=== PATIENT | female | born 1975 | race Caucasian/White ===

== ENCOUNTER 2016-11-12 20:12 | Emergency (ER) | payer OTHER ==
[2016-11-12] MEDS ORDERED: IBUPROFEN 600 MG TABLET PO ONE (20:46)
[2016-11-12] MEDS ORDERED: CHLORDIAZEPOXIDE 25 MG CAPSULE PO ONE (20:46)
--- NOTE | 2016-11-12 21:45 | ER NURSING DOCUMENTATION ---
Nurse's Notes [facility] Name:Natasha Kulkarni Age:41 yrs Sex:Female :1975 Arrival Date:11/12/2016 Time:20:12 Bed4 Private MD: Diagnosis:Rib Fracture Presentation: 11/12 20:20 Presenting complaint: Patient states: pt states she fell 2 days ago. has left sided rib bw2 pain. lung sounds present and clear. no obvious trauma. Care prior to arrival: None. Mechanism of Injury: Fall unknown. Trauma event details: Injury occurred in the [facility]. 20:20 Acuity: ZULLY 3 bw2 20:20 Method Of Arrival: Walk In 2 21:44 Transition of care: [place]. bw2 Historical: - Allergies: No known drug Allergies; - Tetanus: unknown unknown. - Ebola Screening: : Patient negative for fever greater than or equal to 101.5 degrees Fahrenheit, and additional compatible Ebola Virus Disease symptoms. Patient denies exposure to infectious person. Patient denies travel to an Ebola-affected area in the 21 days before illness onset. No symptoms or risks identified at this time. . - Social history: Smoking status: Patient uses tobacco products, current every day smoker. - Immunization history: Flu Vaccine None. Screenin:24 Abuse screen: Denies threats or abuse. Nutritional screening: No deficits noted. bw2 Tuberculosis screening: No symptoms or risk factors identified. 20:25 Infectious Disease Risk None. bw2 Primary Survey: 20:23 Airway: patent. Breathing/Chest: Respiratory pattern: regular, Respiratory effort: bw2 spontaneous, Breath sounds: clear, bilaterally. Chest inspection: symmetrical rise and fall of the chest. Circulation: Skin color: pink. Assessment: 20:23 General: Appears in no apparent distress, Behavior is anxious. Pain: Complains of pain bw2 in left rib Pain currently is 10 out of 10 on a pain scale. 20:24 See Triage Assessment done by same RN. bw2 Vital Signs: 20:23 BP 131 / 102; Pulse 76; Temp 97.8; Pulse Ox 97% on R/A; Weight 58.97 kg; Height 5 ft. 7 bw2 in. (170.18 cm); Pain 10/10; 21:34 BP 160 / 98; Pulse 78; Resp 18; Pulse Ox 97% ; bw2 20:23 Body Mass Index 20.36 (58.97 kg, 170.18 cm) bw2 Trauma Score (Adult): 20:23 Eye Response: spontaneous(1); Verbal Response: oriented(1); Motor Response: obeys bw2 commands(2); Systolic BP: > 89 mm Hg(4); Respiratory Rate: 10 to 29 per min(4); [place] Score: 15; Trauma Score: 12 ED Course: 20:14 Patient arrived in ED. jt 20:15 Ozzie Sanchez MD is Attending Physician. sc 20:20 Alona Tovar is Primary Nurse. bw2 20:23 Triage completed. bw2 20:24 Patient moved to radiology. johnny 20:24 Valuables Remains with patient Placed in gown. Bed in low position. Side rails up X2. bw2 20:25 Cardiac Monitoring On for Nurse Monitoring only. Pulse Ox - RN Monitoring Only NIBP On bw2 - RN Monitoring Only. 20:38 Patient moved back from radiology. johnny Administered Medications: 20:34 Drug: librium - chlordiazePOXIDE 50 mg; Route: PO; lp 20:34 Drug: Ibuprofen 600 mg; Route: PO; lp Outcome: 21:37 Discharge ordered by . sc 21:43 Discharged to [place] bw2 21:43 Condition: good 21:43 Discharge Assessment: Patient awake, alert and oriented x 3. No cognitive and/or functional deficits noted. Patient verbalized understanding of disposition instructions. 21:43 Discharge instructions given to patient, Instructed on discharge instructions, follow up and referral plans. Demonstrated understanding of instructions, report called to [place]. given to Petey TIMMONS 21:45 Patient left the ED. bw2 Signatures: Patti Luz RN RN Ozzie Sanchez MD MD sc Abbott, Laura lea Tennant, Joanne jt Wisely, Beth bw2
--- NOTE | 2016-11-12 21:45 | ER PHYSICIAN DOCUMENTATION ---
Physician Documentation [facility] Name:Natasha Kulkarni Age:41 yrs Sex:Female :1975 Arrival Date:11/12/2016 Time:20:12 Bed4 Private MD: Ozzie Bowers Disposition: 11/12/16 21:37 Discharged to [place]. Impression: Rib Fracture. - Condition is Fair. - Discharge Instructions: RIB FRACTURE - FRACTURE, Rib, Alcoholism - ALCOHOL ABUSE. - Medical Reconciliation form form. - Follow up: Private Physician; When: Tomorrow; Reason: Continuance of care. - Problem is new. - Symptoms have improved. HPI: 11/12 21:34 This 41 yrs old Female presents to ER via Walk In with complaints of Fall sc Injury. 21:34 Details of fall: The patient fell from an upright position, while walking. Onset: The sc symptom(s)/episode began/occurred 2 day(s) ago. Associated injuries: The patient sustained injury to the chest, contusion. Associated signs and symptoms: The patient has no apparent associated signs or symptoms, Loss of consciousness: the patient experienced no loss of consciousness. Severity of symptoms: At their worst the symptoms were moderate. pulseox at [place] of 70%, last drink 1400.. Historical: - Allergies: No known drug Allergies; - Tetanus: unknown unknown. - Ebola Screening: : Patient negative for fever greater than or equal to 101.5 degrees Fahrenheit, and additional compatible Ebola Virus Disease symptoms. Patient denies exposure to infectious person. Patient denies travel to an Ebola-affected area in the 21 days before illness onset. No symptoms or risks identified at this time. . - Social history: Smoking status: Patient uses tobacco products, current every day smoker. - Immunization history: Flu Vaccine None. ROS: 21:35 Constitutional: Negative for fever, chills, and weight loss. sc Eyes: Negative for injury, pain, redness, and discharge. ENT: Negative for injury, pain, and discharge. Neck: Negative for injury, pain, and swelling. Cardiovascular: Negative for chest pain, palpitations, and edema. Respiratory: Negative for shortness of breath, cough, wheezing, and pleuritic chest pain. Abdomen/GI: Negative for abdominal pain, nausea, vomiting, diarrhea, and constipation. Back: Negative for injury and pain. MS/Extremity: Negative for injury and deformity. Skin: Negative for injury, rash, and discoloration. 21:35 Neuro: Negative for headache, weakness, numbness, tingling, and seizure. sc 21:35 MS/extremity: Negative for acute changes. Exam: Constitutional: This is a well developed, well nourished patient who is awake, alert, and in no acute distress. Head/Face: Normocephalic, atraumatic. Eyes: Pupils equal round and reactive to light, extra-ocular motions intact. Lids and lashes normal. Conjunctiva and sclera are non-icteric and not injected. Cornea within normal limits. Periorbital areas with no swelling, redness, or edema. ENT: Nares patent. No nasal discharge, no septal abnormalities noted. Tympanic membranes are normal and external auditory canals are clear. Oropharynx with no redness, swelling, or masses, exudates, or evidence of obstruction, uvula midline. Mucous membranes moist. Neck: Trachea midline, no thyromegaly or masses palpated, and no cervical lymphadenopathy. Supple, full range of motion without nuchal rigidity, or vertebral point tenderness. No meningismus. Cardiovascular: Regular rate and rhythm with a normal S1 and S2. No gallops, murmurs, or rubs. Normal PMI, no JVD. No pulse deficits. Respiratory: Lungs have equal breath sounds bilaterally, clear to auscultation and percussion. No rales, rhonchi or wheezes noted. No increased work of breathing, no retractions or nasal flaring. Abdomen/GI: Soft, non-tender, with normal bowel sounds. No distension or tympany. No guarding or rebound. No evidence of tenderness throughout. Back: No spinal tenderness. No costovertebral tenderness. Full range of motion. Skin: Warm, dry with normal turgor. Normal color with no rashes, no lesions, and no evidence of cellulitis. MS/ Extremity: Pulses equal, no cyanosis. Neurovascular intact. Full, normal range of motion, negative Homans's, calves equal bilaterally. 21:36 Neuro: Awake and alert, GCS 15, oriented to person, place, time, and situation. ct Cranial nerves II-XII grossly intact. Motor strength 5/5 in all extremities. Sensory grossly intact. Cerebellar exam normal. Normal gait. 21:36 Chest/axilla: Inspection: normal, Palpation: tenderness, that is moderate, of the left breast, that totally reproduces the patient's complaints. Vital Signs: 20:23 BP 131 / 102; Pulse 76; Temp 97.8; Pulse Ox 97% on R/A; Weight 58.97 kg; Height 5 ft. 7 bw2 in. (170.18 cm); Pain 10/10; 21:34 BP 160 / 98; Pulse 78; Resp 18; Pulse Ox 97% ; bw2 20:23 Body Mass Index 20.36 (58.97 kg, 170.18 cm) bw2 Trauma Score (Adult): 20:23 Eye Response: spontaneous(1); Verbal Response: oriented(1); Motor Response: obeys 2 commands(2); Systolic BP: > 89 mm Hg(4); Respiratory Rate: 10 to 29 per min(4); [place] Score: 15; Trauma Score: 12 MDM: 20:[address] 21:36 Differential diagnosis: contusion, fracture, multiple trauma. Data reviewed: vital sc signs, nurses notes, radiologic studies, plain films. 21:37 Data reviewed: and as a result, I will discharge patient. ct 11/14 07:21 Order name: [id number] EDMS Dispensed Medications: 20:34 Drug: librium - chlordiazePOXIDE 50 mg; Route: PO; lp 20:34 Drug: Ibuprofen 600 mg; Route: PO; lp Signatures: Patti Luz RN RN Ozzie Mojica MD MD [place] [id number]
--- NOTE | 2016-11-14 07:03 | RADIOLOGY REPORT ---
Two views of the chest, without prior films for comparison, demonstrate the heart, vessels and lungs to be unremarkable. No infiltrate, fluid or pneumothorax is seen. No displaced rib fracture is identified. IMPRESSION: 1. No acute cardiopulmonary abnormality is identified. 2. No displaced rib fracture is identified. Occult nondisplaced rib fractures are not excluded. If clinically indicated, further evaluation and/or follow-up may be of benefit. MTDD
== END 2016-11-12 21:45 ==
LOC: ER 20:12 → EEVIPCON 20:12 → ER 21:45
DX: S22.39XA Fracture of one rib, unspecified side, initial encounter for closed fracture (principal); W19.XXXA Unspecified fall, initial encounter; Y93.01 Activity, walking, marching and hiking; F10.20 Alcohol dependence, uncomplicated; F17.210 Nicotine dependence, cigarettes, uncomplicated
CPT/HCPCS: 71020; 99283

== ENCOUNTER 2016-11-29 13:31 | Emergency (ER) | payer OTHER ==
[2016-11-29] MEDS ORDERED: cloNIDine HCL 0.1 MG TABLET PO ONE (15:01)
[2016-11-29] MEDS ORDERED: MAGNESIUM CITRATE SOLN 296 ML BTL ONE (15:02)
--- NOTE | 2016-11-29 15:49 | ER NURSING DOCUMENTATION ---
Nurse's Notes [facility] Name:Natasha Kulkarni Age:41 yrs Sex:Female :1975 Arrival Date:11/29/2016 Time:13:31 Bed3 Private MD: Diagnosis:Constipation Presentation: 11/29 13:43 Acuity: ZULLY 3 tg 14:19 Presenting complaint: Patient states: General ABD pain, feels bloated. No nausea or tg sharp pain, poor BMs lately. Distended. Transition of care: [place]. 14:19 Method Of Arrival: Private Vehicle tg Triage Assessment: 14:03 General: Appears in no apparent distress, Behavior is cooperative, pleasant. Pain: tg Complains of pain in abdomen. Neuro: Level of Consciousness is awake, alert. Cardiovascular: Capillary refill < 3 seconds. Respiratory: Airway is patent Respiratory effort is even, unlabored. GI: Abdomen is distended, Bowel sounds present X 4 quads. Abd is soft X 4 quads Abdomen is tender to palpation X 4 quads. Derm: Skin is pink, warm & dry. Historical: - Allergies: No known drug Allergies; - Home Meds: 1. gabapentin oral 2. Lexapro Oral 3. anti-anxiety med - PMHx: ALCOHOLISM; ANXIETY; - PSHx: breast tumor removed; - Tetanus: < 10 years. - Ebola Screening: : Patient negative for fever greater than or equal to 101.5 degrees Fahrenheit, and additional compatible Ebola Virus Disease symptoms. Patient denies exposure to infectious person. Patient denies travel to an Ebola-affected area in the 21 days before illness onset. No symptoms or risks identified at this time. . - Immunization history: Flu Vaccine unknown. - Social history: Smoking status: Patient uses tobacco products, current some day smoker. Screenin:18 Infectious Disease Risk Unable to Obtain. Abuse screen: Denies threats or abuse. Denies tg injuries from another. Nutritional screening: No deficits noted. Assessment: 15:49 Reassessment: PT had massive bowel movement post enema . rh Vital Signs: 13:46 BP 135 / 90; Pulse 86; Resp 16; Temp 99(O); Pulse Ox 94% on R/A; Weight 63.5 kg (R); tg Height 5 ft. 9 in. (175.26 cm) (R); Pain 8/10; 15:48 BP 144 / 80; Pulse 70; Resp 15; Pulse Ox 98% on R/A; Pain 0/10; rh 13:46 Body Mass Index 20.67 (63.50 kg, 175.26 cm) ED Course: 13:41 Patient arrived in ED. rachele 13:42 Ricky Nogueira MD is Attending Physician. sandy 13:43 Torito Medellin RN is Primary Nurse. tg 13:44 Triage completed. tg 14:06 Patient moved to radiology. hz 14:12 Patient moved back from radiology. hz 14:18 Arm band placed on. tg 14:18 Valuables Remains with patient Patient has correct armband on for positive tg identification. Placed in gown. Bed in low position. Call light in reach. Side rails up X 1. Diet: Patient is NPO. 15:20 Soap suds enema given. Patient tolerated well. rh Administered Medications: 14:53 Drug: cloNIDine 0.1 mg; Route: PO; 15:49 Follow up: Response: Anxiety decreased 14:54 Drug: Magnesium Citrate Liquid 300 ml; Route: PO; 15:49 Follow up: Response: No adverse reaction Outcome: 15:38 Discharge ordered by . sandy 15:48 Discharged to [facility] 15:48 Condition: improved 15:48 Discharge Assessment: Patient awake, alert and oriented x 3. No cognitive and/or functional deficits noted. Patient verbalized understanding of disposition instructions. 15:48 Discharge instructions given to patient, Instructed on discharge instructions, follow up and referral plans. Demonstrated understanding of instructions. 15:49 Patient left the ED. Signatures: Torito Medellin RN RN Ricky Nogueira MD MD jm Hofsess, Rachel Kaylynn Vivar Gerald Ivan
--- NOTE | 2016-11-29 15:49 | ER PHYSICIAN DOCUMENTATION ---
Physician Documentation [facility] Name:Natasha Kulkarni Age:41 yrs Sex:Female :1975 Arrival Date:11/29/2016 Time:13:31 Bed3 Private MD: Ricky Nichols Disposition: 11/29/16 15:38 Discharged to Home/Self Care. Impression: Constipation. - Condition is Good. - Discharge Instructions: CONSTIPATION (Adult). - Medical Reconciliation form form. - Follow up: Private Physician; When: As needed; Reason: Continuance of care. - Problem is new. - Symptoms have improved. HPI: 11/29 17:47 This 41 yrs old Female presents to ER via Private Vehicle with complaints of jm Abdominal Pain. 17:47 The patient presents with constipation, the patient has not had a bowel movement for jm 5days, has tried to treat at home, with enema(s), with Metamucil. Onset: The symptoms/episode began/occurred today. Associated signs and symptoms: Pertinent positives: constipation. Severity of pain: in the emergency department the pain is unchanged. The patient has not experienced similar symptoms in the past. Historical: - Allergies: No known drug Allergies; - Home Meds: 1. gabapentin oral 2. Lexapro Oral 3. anti-anxiety med - PMHx: ALCOHOLISM; ANXIETY; - PSHx: breast tumor removed; - Tetanus: < 10 years. - Ebola Screening: : Patient negative for fever greater than or equal to 101.5 degrees Fahrenheit, and additional compatible Ebola Virus Disease symptoms. Patient denies exposure to infectious person. Patient denies travel to an Ebola-affected area in the 21 days before illness onset. No symptoms or risks identified at this time. . - Immunization history: Flu Vaccine unknown. - Social history: Smoking status: Patient uses tobacco products, current some day smoker. ROS: 17:47 Abdomen/GI: Positive for abdominal pain, constipation, abdominal cramps, Negative for jm nausea, vomiting, diarrhea. 17:47 Neuro: Negative for dizziness. 17:47 All other systems are negative. Exam: 17:47 Constitutional: The patient appears alert, awake. jm 17:47 Cardiovascular: Rate: normal, Rhythm: regular. 17:47 Abdomen/GI: Inspection: distension, that is moderate, Bowel sounds: active, Palpation: abdomen is soft and non-tender. Vital Signs: 13:46 BP 135 / 90; Pulse 86; Resp 16; Temp 99(O); Pulse Ox 94% on R/A; Weight 63.5 kg (R); tg Height 5 ft. 9 in. (175.26 cm) (R); Pain 8/10; 15:48 BP 144 / 80; Pulse 70; Resp 15; Pulse Ox 98% on R/A; Pain 0/10; rh 13:46 Body Mass Index 20.67 (63.50 kg, 175.26 cm) tg MDM: 13:42 Patient medically screened. 17:51 Differential diagnosis: constipation. Data reviewed: vital signs, nurses notes, and as jm a result, I will discharge patient. Counseling: I had a detailed discussion with the patient and/or guardian regarding: the historical points, exam findings, and any diagnostic results supporting the discharge/admit diagnosis, the need for outpatient follow up, with the patient's primary care provider. Response to treatment: the patient's symptoms have resolved after treatment. ED course: Enema completely resolved the constipation. Pt had largest stool of her life. . 11/29 18:46 Order name: ABDOMEN; COMPLET W/CHEST [id number] EDMS 11/29 14:31 Order name: Enema: Soap Suds; Complete Time: 15:28 Dispensed Medications: 14:53 Drug: cloNIDine 0.1 mg; Route: PO; rh 15:49 Follow up: Response: Anxiety decreased rh 14:54 Drug: Magnesium Citrate Liquid 300 ml; Route: PO; rh 15:49 Follow up: Response: No adverse reaction rh Signatures: Torito Medellin RN RN tg Ricky Nogueira MD MD jm Hofsess, Rachel
--- NOTE | 2016-11-29 17:49 | RADIOLOGY REPORT ---
A single view of the chest demonstrates the heart, vessels and lungs to be unremarkable. Views of the abdomen demonstrate a normal bowel gas pattern. Moderate retained fecal material is noted in the colon. No pathologic calcifications or free air are identified. IMPRESSION: Moderate retained fecal material in the colon. MTDD
== END 2016-11-29 15:49 | disposition home or self-care (01) ==
LOC: ER 13:31
DX: K59.00 Constipation, unspecified (principal); R14.0 Abdominal distension (gaseous); Z79.899 Other long term (current) drug therapy
CPT/HCPCS: 74022; 99284